=== PATIENT | male | born 1970 | race Caucasian/White ===

== ENCOUNTER 2017-09-07 09:31 | Inpatient (IN) | payer OTHER ==
[~2017-09-07] VITALS: Ht 175.3 cm; Wt 84.4 kg
[2017-09-07] MEDS ORDERED: LYRICA100 MG PO (09:57)
[2017-09-07] MEDS ORDERED: RELAFEN PO (09:57)
[2017-09-07] MEDS ORDERED: TRENTAL (09:57)
[2017-09-07] MEDS ORDERED: CLONAZEPAM1 MG PO (09:58)
[2017-09-07] MEDS ORDERED: RESTORIL15 MG PO (09:58)
[2017-09-07] MEDS ORDERED: ZANTAC300 MG PO (09:59)
[2017-09-07] MEDS ORDERED: PRILOSEC OTC20 MG PO (09:59)
== END 2017-09-11 12:35 | disposition home or self-care (01) | DRG 460 ==
LOC: O/R 09-10 04:30 → SURG 09-10 04:30 → SURH 09-10 13:00 → SURG 09-10 14:23 → SURH 09-10 14:45 → SURG 09-11 12:35
PROVIDERS: Orthopaedic Surgery
PROC: 0SG30AJ Fusion of Lumbosacral Joint with Interbody Fusion Device, Posterior Approach, Anterior Column, Open Approach (ICD-10-PCS; 2017-09-10)
PROC: 0ST40ZZ Resection of Lumbosacral Disc, Open Approach (ICD-10-PCS; 2017-09-10)
PROC: 07DS3ZZ Extraction of Vertebral Bone Marrow, Percutaneous Approach (ICD-10-PCS; 2017-09-10)
PROC: 00NY0ZZ Release Lumbar Spinal Cord, Open Approach (ICD-10-PCS; principal; 2017-09-10 13:00)
DX: M48.061 Spinal stenosis, lumbar region without neurogenic claudication (principal); M51.36 Other intervertebral disc degeneration, lumbar region; M96.1 Postlaminectomy syndrome, not elsewhere classified